=== PATIENT | male | born 1995 | race Caucasian/White ===

== ENCOUNTER 2018-05-21 16:43 | Inpatient (IN) | payer BC, OTHER ==
[~2018-05-21] VITALS: Ht 182.9 cm; Wt 66.2 kg
[2018-05-22] MEDS ORDERED: KLONOPIN (04:35)
--- NOTE | 2018-05-22 10:40 | NUR ---
pre-assessment: pt is assessed in intake office by RN, Patient was medically discharged from ER ([facility]) patient verbalized he was given narcan and now I'm feeling pretty bad. pt uses cane to ambulate D/T injury to the right Knee. pt is nodding off but when assessing patient in regards to usage and withdrawal symptoms patient appears anxious and knows what verbiage to use. explained protocols and procedures and patient verbalized understanding
[2018-05-22 11:22] VITALS: BP 121/57
[2018-05-22] MEDS ORDERED: IBUPROFEN 600 MG TABLET PO PRN (13:00)
[2018-05-22] MEDS ORDERED: LORAZEPAM 1 MG TABLET PO PRN ×3 (13:00)
[2018-05-22] MEDS ORDERED: MAG HYDROX/AL HYDROX/SIMETH 30 ML LIQUID UDC PO PRN (13:00)
[2018-05-22] MEDS ORDERED: LORAZEPAM 2 MG/1 ML VIAL IM PRN (13:00)
[2018-05-22] MEDS ORDERED: ONDANSETRON 4 MG/2 ML VIAL IM PRN (13:00)
[2018-05-22] MEDS ORDERED: DICYCLOMINE HCL 20 MG TABLET PO PRN (13:00)
[2018-05-22] MEDS ORDERED: ACETAMINOPHEN 325 MG TABLET PO PRN (13:00)
[2018-05-22] MEDS ORDERED: BUPRENORPHINE HCL 2 MG TAB.SUBL SL PRN (13:00)
[2018-05-22] MEDS ORDERED: 6 DAY PHENOBARBITAL TAPER -SERENITY PROTOCOL PO PRN (13:00)
[2018-05-22] MEDS ORDERED: MAGNESIUM HYDROXIDE 30 ML LIQUID UDC PO PRN (13:00)
[2018-05-22] MEDS ORDERED: LOPERAMIDE HCL 2 MG CAPSULE PO PRN ×2 (13:00)
--- NOTE | 2018-05-22 13:00 | NUR ---
ADMISSION NOTE Pt is a 23 yr old male, AA&O to person, place and situation. Pt is forgetful to time and date. Pt was to be admitted to [facility] on 05/21/18 during the night but was send to the ER by [facility] staff due to drug overdose. While in ER, Pt received Narcan IV and 1000ML of IVF and was discharged at 0832 to [facility] for heroin, Subutex and Klonopin use. Pt arrived on the unit at 1140 and is observed with weak gait and ambulates with DME. Pt states 1 month ago he injured his right knee while playing soccer and had a laceration on his knee. Pts laceration later became affective with MRSA and was treated with antibiotics; last dose was 1 week ago. Due to the injury, pt has been ambulating with DME. Pt is c/o right knee pain 6/10 and is observed of facial grimacing. Pt is observed anxious, agitated, fidgety, flushed and clammy skin, and restlessness. Pt states, I fucken mad they didnt take my girlfriend, we drove from [place] to here to get help. Pt was redirected and was able to continue with assessment. Body check was complete with skin intact, warm and moist to touch. Lung sounds are clear bilaterally. Pt states of allergies to Naloxen, mushroom and onion. Pt states he follows a regular diet and is full code. Pt states of PMH of Anxiety, Depression, Bipolar Disorder, Schizo affective disorder, fx collar bone and MRSA of wound. Pt states he has Hx of Sz x1 in 2011 from Benzo withdrawal. Pt states of taking home medication of Gabapentin 600mg TID but was not brought to the unit. Pt denies any PCP and Psychiatrist. Pt denies any withdrawal induced delirium, or cardiac complication, 5150 or SI/HI. Pt states of having 5 overdoses in the past. Pt states typical withdrawal symptoms are anxiety, agitation, diarrhea, n/v, yawning, headache, muscle aches and teary eyes. Substance use are as follows: 1. Heroin Pt states he has been using heroin since the age of [age] years old. Pt states he was using 2-3g IV daily and has been using at this rate for the past 3-4 weeks. Last use was on 05/21/18 at 2230, pt states of using 0.5g IV. Pt states, It must have been traced with a lot Fentanyl because I overdosed with afterwards. 2. Subutex Pt states he was place on a Subutex maintenance 3 years ago while living in [place]. Pt states he was prescribed 8mg TID and was taking it as prescribed. After moving back to [place], pt was not able get a prescription on Subutex and was experiencing withdrawal symptoms. Pt states he was not able to tolerate the withdrawal symptoms and relapsed. Last use on Subutex was 4 days ago, pt states of using 8mg SL. 3. Klonopin Pt states of he was prescribed Klonopin 2mg PO BID daily for anxiety 3 years ago. Last use was on 05/21/18, pt consumed 8mg at 2345. 4. Crack Cocaine Pt states he began using Crack Cocaine at the age of [age] years old and was smoking 1.5g for 3 years, then stopped for 6 years. Pt states on 05/21/18, he was with a group of friends who were smoking crack cocaine and was tempted to smoke. Pt states he smoke 0.25g at 1200 Pt states he began using substances to just fit in, to look cool until it got to the point where he enjoyed the sensation of getting high. Pt states he has been trying to get sober several times and has been in and out of 30-50 treatments. Last treatment was 2 years ago and went to [facility] for 1 year but was on Subutex maintenance while in rehab. Pt states longest sobriety without any substances was 14-15 months in 2013. Pt states living in [place] made it difficult for him to maintain his sobriety because there were drugs everywhere you go, on the corner of the streets, in rehab, IOP, thats why I wasnt able to stay clean so I moved back to [place]. Once pt was in [place], Pt was not able to get prescriptions for Subutex maintenance, which cause him to relapse and began using heroin again for 3-4 weeks until he came to [facility]. Pt states, I left with my girlfriend and came to [place] for a fresh start and for both of us to have a better life Pt was seen and examined by Dr. Quiles. Pt was place on 5 day Phenobarbital taper and 4 day Subutex taper as ordered. Pt was educated on discharged summary and was able to verbalize understanding. Pt is on fall and seizure precautions. Call light is within reach. Will continue to monitor.
[2018-05-22 13:44] LABS: BASOPHILS % (AUTO) 0.6 % (0.0-2.0); EOSINOPHILS # (AUTO) 0.1 K/uL (0.0-0.7); EOSINOPHILS % (AUTO) 2.3 % (0.0-7.0); HEMATOCRIT 36.6 % (36.7-47.1); HEMOGLOBIN 12.9 g/dL (12.5-16.3); LYMPHOCYTES # (AUTO) 1.7 K/uL (20.0-40.0); LYMPHOCYTES % (AUTO) 32.3 % (20.5-51.5); MEAN CORPUSCULAR HEMOGLOBIN 30.5 uug (23.8-33.4); MEAN CORPUSCULAR HGB CONC 35 g/dL (32.5-36.3); MONOCYTES # (AUTO) 0.5 K/uL (2.0-10.0); MONOCYTES % (AUTO) 10.1 % (0.0-11.0); NEUTROPHILS # (AUTO) 2.8 K/uL (1.8-8.9); NEUTROPHILS % (AUTO) 54.7 % (38.5-71.5); PLATELET COUNT (AUTO) 248 K/uL (152-348); RED BLOOD CELL COUNT(AUTO) 4.25 MIL/uL (4.06-5.63); WHITE BLOOD COUNT (AUTO) 5.2 K/uL (3.6-10.2)
[2018-05-22 13:54] LABS: ETHANOL < 3 MG/DL (0-0)
[2018-05-22 13:58] LABS: ALANINE AMINOTRANSFERASE 25 U/L (16-63); ALKALINE PHOSPHATASE 72 U/L (50-136); ASPARTATE AMINOTRANSFERASE 20 U/L (15-37); BILIRUBIN,TOTAL 1.2 mg/dL (0.2-1.0); CARBON DIOXIDE 28 mmol/L (21-32); CHLORIDE 103 mmol/L (98-107); GLUCOSE 112 mg/dL (74-106); MAGNESIUM 2.2 mg/dL (1.8-2.4); POTASSIUM 3.4 mmol/L (3.5-5.1); TOTAL PROTEIN, SERUM 7.6 g/dL (6.4-8.2); UREA NITROGEN, BLOOD 10 mg/dL (7-18)
[2018-05-22 14:03] LABS: THYROID STIMULATING HORMONE 0.767 mIU/mL (0.358-3.740)
[2018-05-22] MEDS ORDERED: POTASSIUM CHLORIDE 20 MEQ TAB.PRT.SR PO ONE (14:45)
[2018-05-22] MEDS: PHENOBARBITAL 60 MG TABLET PO SCH ×2 (15:00→21:17)
--- NOTE | 2018-05-22 15:40 | NUR ---
MEDICATION HELD Phenobarbital 60mg PO as scheduled at 1500 was held due to pt was too sedated. Pt is arousable to touch and name but was unable to be woken up. RR is 16. Pt was given KDur 20MEQ PO for replacement. Safety precautions observed. Will continue to monitor.
[2018-05-22 16:00] VITALS: BP 107/61
[2018-05-22 17:19] LABS: *AMPHETAMINE, URINE NEGATIVE (NEGATIVE); *BARBITURATE, URINE NEGATIVE (NEGATIVE); *CANNABINOID, URINE NEGATIVE (NEGATIVE); *COCCAINE, URINE POSITIVE (NEGATIVE); *OPIATE, URINE POSITIVE (NEGATIVE); *PHENCYCLIDINE SCREEN,URINE NEGATIVE (NEGATIVE)
--- NOTE | 2018-05-22 18:53 | NUR ---
PRN GIVEN Pt was c/o x2 episodes of diarrhea, muscle aches, sweats, restlessness, yawning and anxiety. Pt states, "I am having heroin withdrawal". COWS assessment was 12. Imodium 4mg PO PRN and Subutex 4mg SL PRN was given as ordered. Will endorse to second shift supervisor nurse to continue with assessment.
--- NOTE | 2018-05-22 19:05 | NUR ---
END OF SHIFT Pt is a 23 yr old male, newly admitted to [facility] for Opiate/Benzo withdrawal and was place on 5 day Phenobarbital taper starting today and 4 day Subutex taper starting on 05/23/18. Pt has been noted sedated and was in bed sleeping throughout the day. Phenobarbital 60mg PO scheduled at 1500 was held due to pt was too sedated. While awake, Pt was c/o anxiety, x2 episodes of diarrhea, sweats, chills, muscle aches, yawning and agitation. COWS score was 12. Pt was given Imodium 4mg PO PRN and Subutex 4mg SL PRN at 1853. Endorsed to shift leader nurse to f/u with re-assessment. Pt is on fall and seizure precautions. Last COWS score was 12 at 1853 and CIWA score was 9 upon admission.
--- NOTE | 2018-05-22 19:30 | NUR ---
Start of shift Patient is a 23 year old male admitted on 05/22/2018 here at [facility] for Opiates withdrawal. Patient is on a 5 day Phenobarbital taper and a 4 day Subutex taper. Patients last COWS was 12. Per endorsement patient had potassium replaced today 05/22/2018, MRSA swab was collected and needs to be send to lab, will send swab to lab. Patient had PRN Subutex and Imodium for anxiety and diarrhea. Will monitor effectiveness of medication. Patient is on Fall and Seizure precautions. Upon rounds patient was noted in room watching tv, he seemed depressed, worried, and anxious. Patient verbalized understanding of plan of care. Patient verbalized decrease anxiety. Respirations are even and unlabored. Safety measures in place, bed locked in low position, side rails up x2, and call light within reach. Will continue to monitor.
--- NOTE | 2018-05-22 19:52 | NUR ---
PRN Imodium and Subutex Reassessment Patient reports he has not experience another episode of diarrhea, and his anxiety has decreased. Medication was noted to effective and will continue to monitor. Respirations are even and unlabored. Safety measures in place.
[2018-05-22 20:00] VITALS: BP 110/63
--- NOTE | 2018-05-22 20:00 | NUR ---
COWS Assessment Patient is presenting with s/s of withdrawal as follow: anxiety, agitation, dilated pupils, and goose bumps. Patients COWS is 8. Respirations are even and unlabored. Safety measures in place. Will continue to monitor.
[2018-05-22] MEDS: diphenhydrAMINE 50 MG CAPSULE PO PRN (22:42)
--- NOTE | 2018-05-22 22:42 | NUR ---
PRN Benadryl Patient reports difficulty falling asleep. Administered PRN Benadryl and was tolerated well. Respirations are even and unlabored. Safety measures in place. Will continue to monitor.
--- NOTE | 2018-05-22 23:42 | NUR ---
PRN Benadryl Reassessment Patient noted in bed with eyes closed resting with tv and lights off. Medication noted to be effective. Respirations are even and unlabored. Safety measures in place. Will continue to monitor.
[2018-05-23] VITALS: BP 106/69
--- NOTE | 2018-05-23 | NUR ---
COWS Deferred Patient noted in bed lying with eyes closed, breathing even and unlabored. Per protocol COWS is to be assess while patient is awake. Safety measures in place. Will continue to monitor.
[2018-05-23 04:00] VITALS: BP 110/72
[2018-05-23 04:09] LABS: HEPATITIS B SURFACE AG Negative (Negative)
--- NOTE | 2018-05-23 07:10 | NUR ---
Start of Shift Note Pt. is a 23 y/o male admitted for the medically managed withdrawal from Opiates, and Benzodiazepines. Pt. also smoked crack cocaine on his date of admission. Pt. was placed on a 5 day Phenobarbital, and 4 day Subutex taper. Endorse from previous shift pt. presented with anxiety, agitation, depression, a flat affect, and tremors. Received pt. in room. Pt. sitting on the edge of the getting himself ready to step out for a cigarette break. Pt. presents as disheveled, with an avoidant gaze, depressed mood, flat affect, and tremors. Pt. report feeling anxious, restless and congested. Educated pt. on treatment plan and medication regiment for the day. Safety measures in place. Will continue to monitor pt.s behavior for safety.
--- NOTE | 2018-05-23 07:32 | NUR ---
End of shift Patient is a 23 year old male admitted on 05/22/2018 here at [facility] for Opiates withdrawal. Patient is on a 5 day Phenobarbital taper and a 4 day Subutex taper. Patients last COWS was 8. Patient had PRN Benadryl during this shift. Patient is on Fall and Seizure precautions. Patient slept for 9 hours and had a total intake of 1,200 ml. Patient voided x2 and had no bowel movements. Respirations are even and unlabored. Safety measures in place, bed locked in low position, side rails up x2, and call light within reach. Will endorse to day shift.
[2018-05-23 07:35] LABS: BILIRUBIN,TOTAL 1.2 mg/dL (0.2-1.0); CREATININE 0.9 mg/dL (0.6-1.3); POTASSIUM 3.7 mmol/L (3.5-5.1); TOTAL PROTEIN, SERUM 7.2 g/dL (6.4-8.2)
[2018-05-23 08:00] VITALS: BP 105/49
--- NOTE | 2018-05-23 08:00 | NUR ---
COWS/CIWA Assessment COWS of 11 and CIWA of 12. Pt. in room presenting with tremors, diaphoresis, and tremors. Pt. reports chills, body aches, headache, abdominal cramps, and increased anxiety. Will give medications as ordered. Will continue to monitor pt.'s behavior for safety.
[2018-05-23] MEDS: PHENOBARBITAL 60 MG TABLET PO SCH ×4 (08:22→21:44)
[2018-05-23] MEDS: METHOCARBAMOL 750 MG TABLET PO PRN ×2 (08:22→22:08)
[2018-05-23] MEDS: BUPRENORPHINE HCL 2 MG TAB.SUBL SL SCH ×3 (08:22→21:44)
[2018-05-23] MEDS: HYDROXYZINE PAMOATE 25 MG CAPSULE PO PRN (08:22)
[2018-05-23] MEDS: CLONIDINE HCL 0.1 MG TABLET PO PRN (08:22)
[2018-05-23] MEDS: MULTIVITAMINS,THERAPEUTIC TABLET PO SCH (08:22)
--- NOTE | 2018-05-23 08:23 | NUR ---
PRN Medication Pt. in room complaining of increased anxiety and body aches. PRN Motrin, Clonidine, Vistaril, and Robaxin given at this time manage withdrawal symptoms. Will continue to monitor pt.'s behavior for safety and medication effectiveness.
[2018-05-23] MEDS ORDERED: TUBERCULIN,PURIF.PROT.DERIV. 5 TU/0.1 ML TEST ID ONE (09:00)
[2018-05-23] MEDS ORDERED: 4 DAY TAPER BUPRENORPHINE -SERENITY PROTOCOL SL PRN (09:00)
--- NOTE | 2018-05-23 09:30 | NUR ---
PRN Re-Assessment Pt. reports a decreased in anxiety and body aches. Medication effective. Will continue to monitor pt.'s behavior for safety.
[2018-05-23 12:00] VITALS: BP 105/55
--- NOTE | 2018-05-23 12:00 | NUR ---
COWS/CIWA Assessment COWS of 11 and CIWA of 12. Pt. in room presenting with tremors, diaphoresis, and tremors. Pt. reports chills, body aches, headache, abdominal cramps, and increased anxiety. Pt. compliant with medication regiment and treatment plan. Will continue to monitor pt.'s behavior for safety.
--- NOTE | 2018-05-23 13:19 | NUR ---
Therapist prompted client to attend all group therapy sessions.
[2018-05-23] MEDS: KETOROLAC TROMETHAMINE 30 MG INJ IM PRN (15:58)
--- NOTE | 2018-05-23 15:58 | NUR ---
PRN Medication Pt. in room complaining of severe body aches. PRN Toradol given at this time manage withdrawal symptoms. Will continue to monitor pt.'s behavior for safety and medication effectiveness.
[2018-05-23 16:00] VITALS: BP 93/50
--- NOTE | 2018-05-23 16:00 | NUR ---
COWS/CIWA Assessment COWS of 10 and CIWA of 10. Pt. in room presenting with tremors, diaphoresis, and tremors. Pt. reports chills, body aches, abdominal cramps, and increased anxiety. Pt. compliant with treatment plan and medication regiment. Will continue to monitor pt.'s behavior for safety.
--- NOTE | 2018-05-23 16:30 | NUR ---
PRN Re-Assessment Pt. reports a significant decrease in body aches. Medication effective. Will continue to monitor pt.'s behavior for safety.
--- NOTE | 2018-05-23 19:19 | NUR ---
End of Shift Pt. is a 23 y/o male admitted for the medically managed withdrawal from Opiates, and Benzodiazepines. Pt. also smoked crack cocaine on his date of admission. Pt. was placed on a 5 day Phenobarbital, and 4 day Subutex taper. Throughout shift pt. presented with anxiety, agitation, depression, body aches, a flat affect, and tremors. Pt. complaint with medication regiment and treatment plan. Safety measures in place. Will endorse pt.s care to oncoming shift.
--- NOTE | 2018-05-23 19:30 | NUR ---
Start of shift Patient is a 23 year old male admitted on 05/22/2018 for medically supervised Opiate and Benzo withdrawal. Patient is on a 5 day Phenobarbital taper and 4 day Subutex taper. Patients last CIWA was 10 and COWS 10. Patient had PRN Clonidine, Vistaril, Toradol, and Robaxin. Patient is on Fall and Seizure precautions. Upon rounds patient was noted in room watching tv, 2100 medications were reviewed and patient verbalized understanding. Patient is noted to have a flat affect and depressed. Respirations are even and unlabored. Safety measures in place, bed locked in low position, side rails up x2, and call light within reach. Will continue to monitor.
[2018-05-23 20:00] VITALS: BP 96/63
--- NOTE | 2018-05-23 20:00 | NUR ---
CIWA and COWS Assessment Patient is presenting with s/s and of withdrawal as follow: cold sweats, hold and cold, nausea, diarrhea, and low back pain. Patients COWS is 9 and CIWA is 10. Respirations are even and unlabored. Safety measures in place, and will continue to monitor.
[2018-05-23] MEDS: diphenhydrAMINE 50 MG CAPSULE PO PRN (21:44)
--- NOTE | 2018-05-23 21:45 | NUR ---
PRN Benadryl and Robaxin Patient is reporting difficulty falling asleep and body aches. Administered PRN Benadryl and Robaxin and patient tolerated well. Respirations are even and unlabored. Safety measures are in place. Will continue to monitor.
--- NOTE | 2018-05-23 22:45 | NUR ---
PRN Benadryl and Robaxin Reassessment Patient was noted in bed lying with eyes closed, breathing even and unlabored. Medication noted to be effective, will continue to monitor. Safety measures in place.
[2018-05-24] VITALS: BP 103/63
--- NOTE | 2018-05-24 | NUR ---
CIWA and COWS Assessment Patient is presenting with s/s and of withdrawal as follow: cold sweats, anxiety, agitation, hold and cold, and low back pain. Patients COWS is 8 and CIWA is 10. Respirations are even and unlabored. Safety measures in place, and will continue to monitor.
[2018-05-24 04:00] VITALS: BP 101/61
--- NOTE | 2018-05-24 04:00 | NUR ---
COWS and CIWA Deferred Patient noted in bed lying with eyes closed, breathing even and unlabored. Per protocol COWS and CIWA is to be assess while patient is awake. Safety measures in place. Will continue to monitor.
--- NOTE | 2018-05-24 07:22 | NUR ---
End of shift Patient is a 23 year old male admitted on 05/22/2018 for medically supervised Opiate and Benzo withdrawal. Patient is on a 5 day Phenobarbital taper and 4 day Subutex taper. Patients last CIWA was 8 and COWS 10. Patient had PRN Benadryl and Robaxin. Patient is on Fall and Seizure precautions. Patient slept for 6 hours and had a total intake of 1,153ml. Patient voided x3 and had no bowel movement. Respirations are even and unlabored. Safety measures in place, bed locked in low position, side rails up x2, and call light within reach. Will endorse to day shift.
--- NOTE | 2018-05-24 07:50 | NUR ---
Start Of Shift Patient is a 23yr old male who was admitted to [facility] on 05/22/18 for a medically supervised withdrawal from Benzodiazepines ( Klonopin) and Opiates ( Heroin IV and Subutex SL) and also states he abused Crack Cocaine, he has been placed on a 5 day Phenobarbital taper and 4 day Subutex taper and this is day 2. PRN medications given on PM shift : Benadryl for sleep and Robaxin for body aches, he slept for 6 hours and last COWS was 8 and CIWA 10. Currently he is asleep in bed , breathing even and unlabored, call light within reach. Continue to follow MD plan of care and offer support and encouragement.
[2018-05-24 08:00] VITALS: BP 105/55
[2018-05-24] MEDS: MULTIVITAMINS,THERAPEUTIC TABLET PO SCH (08:56)
[2018-05-24] MEDS: PHENOBARBITAL 60 MG TABLET PO SCH ×3 (08:56→20:27)
[2018-05-24] MEDS ORDERED: BUPRENORPHINE HCL 2 MG TAB.SUBL SL SCH (09:00)
--- NOTE | 2018-05-24 09:00 | NUR ---
COWS 11/ CIWA 10 Withdrawal symptoms present as extreme lethargy, diaphoresis, warm clammy skin, body aches, restlessness and decreased appetite, he has a flat sad affect. Scheduled Subutex and Pheno given, No PRN medications requested
--- NOTE | 2018-05-24 09:59 | NUR ---
Therapist prompted client to attend group therapy.
[2018-05-24 12:00] VITALS: BP 109/46
--- NOTE | 2018-05-24 12:17 | NUR ---
COWS 10/ CIWA 9 Withdrawal symptoms present as extreme lethargy, diaphoresis, warm clammy skin, body aches,goose bumps, restlessness and decreased appetite, he has a flat sad affect.
[2018-05-24] MEDS: KETOROLAC TROMETHAMINE 30 MG INJ IM PRN (14:19)
[2018-05-24] MEDS: BUPRENORPHINE HCL 2 MG TAB.SUBL SL SCH ×2 (14:19→20:26)
[2018-05-24] MEDS: HYDROXYZINE PAMOATE 25 MG CAPSULE PO PRN (14:19)
--- NOTE | 2018-05-24 14:20 | NUR ---
PRN Toradol 30mg Im given for leg pain 8/10 Vistaril 50mg PO given for anxiety
[2018-05-24] MEDS: METHOCARBAMOL 750 MG TABLET PO PRN (14:54)
[2018-05-24] MEDS: ropiniROLE 1 MG TABLET PO PRN (14:54)
--- NOTE | 2018-05-24 14:58 | NUR ---
PRN Requip 1mg PO PRN given for restless legs Robaxin 750mg PO given for leg aches 01/20
--- NOTE | 2018-05-24 16:00 | NUR ---
PRN Reassess Patient states medications effective, muscle aches and restless legs have decreased Robaxin and Requip effective
--- NOTE | 2018-05-24 16:00 | NUR ---
COWS 10/ CIWA 12 Withdrawal symptoms present as extreme lethargy, diaphoresis, warm clammy skin, body aches,goose bumps, restlessness, decreased appetite and restless legs Requip 1mg PO and Robaxin 750mg PO given at 1500 with positive effects Toradol was given at 1420 which was effective
[2018-05-24 16:50] VITALS: BP 114/71
--- NOTE | 2018-05-24 18:45 | NUR ---
End Of Shift Patient is a 23 yr old male who was admitted to [facility] on 05/22/18 for a medically supervised withdrawal from Benzodiazepines (Klonopin) and Opiates ( Heroin IV and Subutex) and also abused crack cocaine, he has been placed on a 5 day Pheno and 4 day Subutex taper and this was day 2/. PRN medications given this shift : Vistaril, Toradol, Requip and Robaxin, his withdrawal symptoms present as generalized body aches, restless legs, restlessness, goose bumps, decreased appetite, lethargy and diaphoresis, he has been isolative to his room all day and has not joined group therapy. He ambulates with the aid of a cane due to right knee injury and unsteady gait. His last COWS was 10 and CIWA 12 @ 1600. He had a fluid intake of 1000 ML, 3 Voids and 1BM. Continue to follow MD plan of care and offer support and encouragement as needed. Endorsed to shift production supervisor.
--- NOTE | 2018-05-24 19:46 | NUR ---
START OF SHIFT NOTE Rcvd report from outgoing nurse. Pt is a 23 y/o male A/O to person, place, time, and purpose. Pt was admitted for medically supervised withdrawal from Benzodiazepines and Opiates. Pt is on day 3 of a 5 day Phenobarbital and day 2 of a 4 day Subutex taper. Pt has been presenting w/ anxiety, agitation, irritability, depressed and withdrawn mood, a blunt affect, sweats, chills, and body aches. PRN Vistaril, Toradol, Requip, and Robaxin were given and noted effective by outgoing nurse. Last CIWA 12 and COWS 10 @ 1600. Call light is within reach. Pt will continue to be monitored and needs met.
[2018-05-24 20:03] VITALS: BP 104/53
--- NOTE | 2018-05-24 20:05 | NUR ---
CIWA AND COWS ASSESSMENT CIWA 12 and COWS 10. Pt has been presenting w/ anxiety, agitation, irritability, depressed and withdrawn mood, a blunt affect, sweats, chills, and body aches. V/S: T:97.9, P:71, RR:16, SPO2:98, BP:104/53.
--- NOTE | 2018-05-25 00:30 | NUR ---
CIWA AND COWS ASSESSMENT CIWA 13 and COWS 10. Pt has been presenting w/ anxiety, agitation, irritability, depressed and withdrawn mood, a blunt affect, sweats, chills, and body aches. Pt refused V/S.
[2018-05-25] MEDS: CLONIDINE HCL 0.1 MG TABLET PO PRN (00:54)
[2018-05-25] MEDS: diphenhydrAMINE 50 MG CAPSULE PO PRN ×2 (00:54→21:21)
--- NOTE | 2018-05-25 00:54 | NUR ---
PRN BENADRYL AND CLONIDINE ADMINISTRATION Benadryl 50mg was given for sleep and Clonidine 0.1mg was given for anxiety and agitation. Will reassess pt in 1hr.
--- NOTE | 2018-05-25 01:54 | NUR ---
PRN BENADRYL AND CLONIDINE REASSESSMENT Pt is in bed w/ his eyes closed. Pt's respirations are unlabored and even.
--- NOTE | 2018-05-25 04:15 | NUR ---
CIWA AND COWS DEFERRED. V/S REFUSED Pt is in bed w/ his eyes closed. Pt's respirations are unlabored and even.
--- NOTE | 2018-05-25 07:22 | NUR ---
END OF SHIFT NOTE Endorsed pt to oncoming nurse. Pt is a 23 y/o male A/O to person, place, time, and purpose. Pt was admitted for medically supervised withdrawal from Benzodiazepines and Opiates. Pt completed day 3 of a 5 day Phenobarbital and day 2 of a 4 day Subutex taper. Pt continues presenting w/ anxiety, agitation, irritability, depressed and withdrawn mood, a blunt affect, sweats, chills, and body aches. Pt denies any S/I or H/I. PRN Benadryl 50mg for sleep and Clonidine 0.1mg for anxiety were given and noted effective. Pts fluid intake was 500ml and he slept for 9hrs. Last CIWA 13 and COWS 10 @ 0000. Call light is within reach.
--- NOTE | 2018-05-25 08:06 | NUR ---
BEGINNING OF SHIFT Patient continues with ongoing 5 day phenobarbital taper and 4 day Subutex taper as ordered, continues under close observation. Patient currently in room with eyes closed, respirations even and unlabored. Responsive to verbal stimuli, will educate regarding plan of care for the day. Per night cleaner endorsement report patient slept for 9 hours, intermittently. Received PRN: Clonidine and Benadryl. Last CIWA score of: 13, last COW: 10. safety measures are in place. will continue to monitor.
--- NOTE | 2018-05-25 08:10 | NUR ---
COW/CIWA ASSESSMENT Patient was noted exhibiting the following s/sx of withdrawal: increase emotional amplitude, emotional volatility, flushed face, clammy skin, difficulty sitting still, fidgety, enlarged pupils, mild arthralgias, and mild myalgias, moist eyes, tremors that can be felt, yawning, irritability, anxiety and agitation. Patient with current COW score of: 10.
[2018-05-25 08:20] VITALS: BP 98/62
[2018-05-25] MEDS: MULTIVITAMINS,THERAPEUTIC TABLET PO SCH (08:27)
[2018-05-25] MEDS: PHENOBARBITAL 60 MG TABLET PO SCH ×2 (08:27→21:21)
[2018-05-25] MEDS: BUPRENORPHINE HCL 2 MG TAB.SUBL SL SCH ×3 (08:28→21:21)
--- NOTE | 2018-05-25 12:45 | NUR ---
COW/CIWA ASSESSMENT Continues to exhibit the following s/sx of withdrawal: increase emotional amplitude, emotional volatility, flushed face, clammy skin, difficulty sitting still, fidgety, enlarged pupils, mild arthralgias, and mild myalgias, moist eyes, tremors that can be felt, yawning, irritability, anxiety and agitation. Patient with current COW score of: 10, and CIWA score of: 10. Will continue to monitor.
--- NOTE | 2018-05-25 12:45 | NUR ---
MD COMMUNICATION Patient reported to nurse, feeling a foreign substance to OD. Area was assessed, no foreign substance visible, however patient c/o of irritation and and discomfort. Redness noted on sclera, notified MD. Educated patient on not touching area, notified MD, per MD ok to flush with NS solution and MD will input new orders, patient education provided. Will continue to monitor.
[2018-05-25] MEDS ORDERED: TOBRAMYCIN/DEXAMETH OPHT OINT 3.5 GM TUBE RIGHTEYE SCH (13:00)
[2018-05-25] MEDS ORDERED: CIPROFLOXACIN 0.3% OPHT OINT 3.5 GM TUBE RIGHTEYE SCH (13:00)
[2018-05-25 13:33] VITALS: BP 105/69
[2018-05-25] MEDS: TOBRAMYCIN/DEXAMETH OPHT DROP 2.5 ML BOTTLE RIGHTEYE SCH ×2 (16:31→21:41)
[2018-05-25 16:50] VITALS: BP 105/62
--- NOTE | 2018-05-25 16:56 | NUR ---
COW/CIWA ASSESSMENT Still presenting with: emotional volatility, flushed face, clammy skin, difficulty sitting still, fidgety, increase emotional amplitude, enlarged pupils, mild arthralgias, and mild myalgias, moist eyes, tremors that can be felt, yawning, irritability, anxiety and agitation. Patient with current COW score of: 10, and CIWA score of: 10. Will continue to monitor. Safety measures in place.
--- NOTE | 2018-05-25 16:57 | NUR ---
END OF SHIFT/ENDORSED CARE Patient alert and oriented x4, continues under close observation with ongoing 5 day Phenobarbital taper and 4 day Subutex taper as ordered. Patient noted disheveled,unshaven,odorous and with dirty fingernails, has clothes thrown on floor, patient was encouraged maintenance of personal space and self grooming, offered linen change and declined. Noted with avoidant eye contact, irritable/angry facial expression. Noted with guarded/anxious mood. Easily agitated, provided with calming reassurance as needed. Encouraged patient to attend group therapies/sessions to learn new coping skills to prevent relapse. Denies SI/HI. Patient was noted exhibiting the following s/sx of withdrawal: increase emotional amplitude, emotional volatility, flushed face, clammy skin, difficulty sitting still, fidgety, enlarged pupils, mild arthralgias, and mild myalgias, moist eyes, tremors that can be felt, yawning, irritability, anxiety and agitation. Patient with last COW score of: 10, and last CIWA score of: 10. Patient started on ATB eye drops to OD, due to c/o irritation, discomfort and redness, currently patient verbalized OD feeling better. Encouraged patient to increase PO fluid intake as tolerated. Also encouraged utilization of non pharmacological interventions. Safety measure are in place. Call light with in each, patient was endorsed to staff nurse, all pertinent information was discussed.
--- NOTE | 2018-05-25 17:00 | NUR ---
Assumed Care: Assumed care for the patient at this time. All pertinent information discussed. No PRNs given. ATB eye drops started. Last .
--- NOTE | 2018-05-25 19:02 | NUR ---
End of Shift Notes: Endorsed patient to night nurse. All pertinent information discussed. Last COWS 10/CIWA 10. No PRNs given. Started on ATB drops for eye irritation. All needs met and attended.
--- NOTE | 2018-05-25 19:30 | NUR ---
Start of shift Patient is a 23 year old male admitted on 05/22/2018 for medically supervised Opiate and Benzo withdrawal. Patient is on a 5 day Phenobarbital taper and 4 day Subutex taper. Patients last CIWA was 10 and COWS 10. Patient had no PRN medications during day shift. Patient is on Fall and Seizure precautions. Upon rounds patient was noted in room watching tv, 2100 medications were reviewed and patient verbalized understanding. Patient seems depressed, isolated, and anxious. Respirations are even and unlabored. Safety measures in place, bed locked in low position, side rails up x2, and call light within reach. Will continue to monitor.
[2018-05-25 20:00] VITALS: BP 123/66
--- NOTE | 2018-05-25 20:00 | NUR ---
CIWA and COWS Assessment Patient is presenting with s/s and of withdrawal as follow: body aches, cold sweats, chills, nausea, and tremors. Patients COWS is 7 and CIWA is 11. Respirations are even and unlabored. Safety measures in place, and will continue to monitor.
--- NOTE | 2018-05-25 21:21 | NUR ---
PRN Benadryl Patient was presenting with difficulty falling asleep. Administered PRN Benadryl and patient tolerated well and will continue to monitor. Respirations are even and unlabored. Safety measures in place.
--- NOTE | 2018-05-25 22:21 | NUR ---
PRN Benadryl Reassessment Patient is noted lying in bed with eyes closed, breathing even and unlabored. Medication noted to be effective. Safety measures in place and will continue to monitor.
[2018-05-26] VITALS: BP 102/62
[2018-05-26 04:00] VITALS: BP 106/67
--- NOTE | 2018-05-26 07:01 | NUR ---
End of shift Patient is a 23 year old male admitted on 05/22/2018 for medically supervised Opiate and Benzo withdrawal. Patient is on a 5 day Phenobarbital taper and 4 day Subutex taper. Patients last CIWA was 11 and COWS 7. Patient is on Fall and Seizure precautions. Patient had PRN Benadryl for sleep during this shift. Patient slept for 8 hours and had a total intake of 1,755 ml. Patient voided x4 and had no bowel movements during this shift. Respirations are even and unlabored. Safety measures in place, bed locked in low position, side rails up x2, and call light within reach. Will continue to monitor.
--- NOTE | 2018-05-26 07:20 | NUR ---
Start Of Shift Patient is a 23yr old male who was admitted to [facility] on 05/22/18 for a medically supervised withdrawal from Benzodiazepines (Klonopin) and Opiates ( Heroin IV and Subutex SL) and also states he abused Crack Cocaine, he continues on a 5 day Phenobarbital taper and 4 day Subutex taper. PRN medications given on PM shift : Benadryl for sleep, he slept for 8 hours and last COWS was 7 and CIWA 11. Currently he is asleep in bed , breathing even and unlabored, call light within reach. Continue to follow MD plan of care and offer support and encouragement.
[2018-05-26 08:00] VITALS: BP 110/68
[2018-05-26] MEDS: ropiniROLE 1 MG TABLET PO PRN (08:09)
[2018-05-26] MEDS: TOBRAMYCIN/DEXAMETH OPHT DROP 2.5 ML BOTTLE RIGHTEYE SCH ×4 (08:09→21:00)
--- NOTE | 2018-05-26 08:10 | NUR ---
PRN Requip 1G given for reports of restless legs, will reassess
[2018-05-26] MEDS: MULTIVITAMINS,THERAPEUTIC TABLET PO SCH (08:12)
--- NOTE | 2018-05-26 08:25 | NUR ---
COWS 8 CIWA 9 Patient presents with increased anxiety, irritability, decreased appetite, restlessness and agitation Scheduled Pheno and Subutex given
[2018-05-26] MEDS ORDERED: PHENOBARBITAL 60 MG TABLET PO SCH (09:00)
[2018-05-26] MEDS ORDERED: BUPRENORPHINE HCL 2 MG TAB.SUBL SL SCH (09:00)
--- NOTE | 2018-05-26 09:10 | NUR ---
PRN Reassess Patient states medication was slightly effective
[2018-05-26 12:00] VITALS: BP 114/60
--- NOTE | 2018-05-26 12:24 | NUR ---
COWS 8 CIWA 9 Patient presents with increased anxiety, irritability, decreased appetite, restlessness, agitation and restless legs Requip 1G PO PRN was given @ 0810 with positive results
[2018-05-26] MEDS ORDERED: TOBR2.5D RIGHTEYE (13:04)
[2018-05-26 16:00] VITALS: BP 121/71
--- NOTE | 2018-05-26 16:00 | NUR ---
COWS 8 CIWA 11 Patient presents with increased anxiety, irritability, decreased appetite, restlessness, agitation and restless legs
--- NOTE | 2018-05-26 18:58 | NUR ---
End Of Shift Patient is a 23 yr old male who was admitted to [facility] on 05/22/18 for a medically supervised withdrawal from Benzodiazepines (Klonopin) and Opiates ( Heroin IV and Subutex) and also abused crack cocaine, he has completed a 5 day Pheno and 4 day Subutex taper and will be discharged tomorrow morning to " [facility]". NO PRN medications were given this shift , his withdrawal symptoms present as generalized body aches, restless legs, restlessness, decreased appetite, lethargy and diaphoresis, he has been isolative to his room all day and has not joined group therapy. His last COWS was 8 and CIWA 11 @ 1600. He had a fluid intake of 1355 ML, 3 Voids and 1BM. Continue to follow MD plan of care and offer support and encouragement as needed. Endorsed to shift coordinator.
--- NOTE | 2018-05-26 19:41 | NUR ---
START OF SHIFT NOTE Rcvd report from outgoing nurse. Pt is a 23 y/o male A/O to person, place, time, and purpose. Pt was admitted for medically supervised withdrawal from Opiates and Benzodiazepines. Pt completed a 5 day Phenobarbital and 4 day Subutex taper. Pt will be discharged on 05/27. Pt has been presenting w/ body aches, restlessness, anxiety, depressed and withdrawn mood, flat affect. Pt rcvd no PRN medications during the previous shift. Last CIWA 11 and COWS 8 @ 1600. Call light is within reach. Pt will continue to be monitored and needs met.
[2018-05-26 20:01] VITALS: BP 120/56
--- NOTE | 2018-05-26 20:01 | NUR ---
CIWA AND COWS ASSESSMENT CIWA 11 and COWS 9. . Pt will be discharged on 05/27. Pt has been presenting w/ body aches, restlessness, anxiety, depressed and withdrawn mood, flat affect. V/S: T:98.4, P:59, RR:16, SPO2:99, BP:120/56
[2018-05-26] MEDS: CLONIDINE HCL 0.1 MG TABLET PO PRN (21:27)
[2018-05-26] MEDS: diphenhydrAMINE 50 MG CAPSULE PO PRN (21:27)
[2018-05-26] MEDS: HYDROXYZINE PAMOATE 25 MG CAPSULE PO PRN (21:27)
--- NOTE | 2018-05-26 21:27 | NUR ---
PRN BENADRYL, CLONIDINE, VISTARIL, AND ROBAXIN ADMINISTRATION Benadryl 50mg for sleep, Clonidine 0.1mg and Vistaril 50mg for anxiety and restlessness, and Robaxin 750mg for body aches were given. Will reassess pt in 1 hr.
[2018-05-26] MEDS: METHOCARBAMOL 750 MG TABLET PO PRN (21:35)
[2018-05-26] MEDS: ONDANSETRON ODT 4 MG TAB.RAPDIS SL PRN (21:57)
--- NOTE | 2018-05-26 21:57 | NUR ---
PRN ZOFRAN ADMINISTRATION Zofran 4mg SL given for nausea. Pt c/o of nausea w/ no episodes of emesis whenever he yawns. Will reassess pt in 1 hr.
--- NOTE | 2018-05-26 22:27 | NUR ---
PRN BENADRYL, CLONIDINE, VISTARIL, AND ROBAXIN REASSESSMENT Pt is in bed w/ his eyes closed. Pt's respirations are unlabored and even.
--- NOTE | 2018-05-26 22:57 | NUR ---
PRN ZOFRAN REASSESSMENT Pt is in bed w/ his eyes closed. Pt's respirations are unlabored and even.
--- NOTE | 2018-05-27 00:09 | NUR ---
CIWA AND COWS DEFERRED. V/S REFUSED Pt is in bed w/ his eyes closed. Pt's respirations are unlabored and even.
--- NOTE | 2018-05-27 04:07 | NUR ---
CIWA AND COWS DEFERRED. V/S REFUSED Pt is in bed w/ his eyes closed. Pt's respirations are unlabored and even.
--- NOTE | 2018-05-27 07:00 | NUR ---
END OF SHIFT NOTE Endorsed pt to oncoming nurse. Pt is a 23 y/o male A/O to person, place, time, and purpose. Pt was admitted for medically supervised withdrawal from Opiates and Benzodiazepines. Pt completed a 5 day Phenobarbital and 4 day Subutex taper. Pt will be discharged on 05/27. Pt continues presenting w/ body aches, restlessness, anxiety, depressed and withdrawn mood, flat affect. Pt denies any S/I or H/I. PRN Benadryl, Clonidine, Vistaril, Robaxin, and Zofran were given and noted effective. Pts fluid intake was 1110ml and he slept for 9hrs. Last CIWA 11 and COWS 9 @ 1999. Call light is within reach.
--- NOTE | 2018-05-27 07:20 | NUR ---
start of shift Patient is a 23yr old male who was admitted to [facility] on 05/22/18 for a medically supervised withdrawal from Benzodiazepines (Klonopin) and Opiates ( Heroin IV and Subutex SL) and also states he abused Crack Cocaine. He has completed a 5 day Phenobarbital taper and 4 day Subutex taper and is to be discharged this AM to " [facility]". PRN medications given on PM shift : Benadryl, clonidine, Vistaril and Robaxin and Zofran, he slept for 9 hours and last COWS was 9 and CIWA 11. Currently he is asleep in bed , breathing even and unlabored, call light within reach. Continue to follow MD plan of care and offer support and encouragement.
[2018-05-27 08:00] VITALS: BP 133/66
--- NOTE | 2018-05-27 08:25 | NUR ---
COWS 8 CIWA 11 Patient presents with increased anxiety, irritability, decreased appetite, restlessness, agitation, nausea and restless legs
[2018-05-27] MEDS: MULTIVITAMINS,THERAPEUTIC TABLET PO SCH (08:36)
[2018-05-27] MEDS: ropiniROLE 1 MG TABLET PO PRN (08:36)
--- NOTE | 2018-05-27 08:36 | NUR ---
PRN Requip 1G given for C/O restless legs Zofran 4mg SL given for nausea
[2018-05-27] MEDS: ONDANSETRON ODT 4 MG TAB.RAPDIS SL PRN (08:37)
[2018-05-27] MEDS: TOBRAMYCIN/DEXAMETH OPHT DROP 2.5 ML BOTTLE RIGHTEYE SCH (08:59)
--- NOTE | 2018-05-27 09:36 | NUR ---
PRN Reassess Zofran effective, nauseas ceased Requip somewhat effective for restless legs
--- NOTE | 2018-05-27 09:41 | NUR ---
Discharge Note Patient signed and dated all DC paperwork, all personal belongings returned to patient, VS stable, states no SI/HI at this time, patient ambulated off the unit @ 0941 and was picked up in lobby by " [facility]" for transport to " [facility]".
== END 2018-05-27 09:41 | DRG 895 ==
LOC: SRC 05-22 09:54
PROVIDERS: ADMIT Family Medicine Addiction Medicine; ATTEND Family Medicine Addiction Medicine
PROC: HZ2ZZZZ Detoxification Services for Substance Abuse Treatment (ICD-10-PCS; principal; 2018-05-22)
PROC: HZ41ZZZ Group Counseling for Substance Abuse Treatment, Behavioral (ICD-10-PCS; 2018-05-23)
PROC: HZ31ZZZ Individual Counseling for Substance Abuse Treatment, Behavioral (ICD-10-PCS; 2018-05-24)
DX: F11.23 Opioid dependence with withdrawal (principal); F13.20 Sedative, hypnotic or anxiolytic dependence, uncomplicated; F13.230 Sedative, hypnotic or anxiolytic dependence with withdrawal, uncomplicated; F41.1 Generalized anxiety disorder; Z86.14 Personal history of Methicillin resistant Staphylococcus aureus infection; F25.9 Schizoaffective disorder, unspecified; F32.9 Major depressive disorder, single episode, unspecified; E87.6 Hypokalemia; H10.9 Unspecified conjunctivitis; T15.91XA Foreign body on external eye, part unspecified, right eye, initial encounter; X58.XXXA Exposure to other specified factors, initial encounter; Y92.89 Other specified places as the place of occurrence of the external cause; F17.210 Nicotine dependence, cigarettes, uncomplicated; E80.7 Disorder of bilirubin metabolism, unspecified; Z81.1 Family history of alcohol abuse and dependence; T40.1X1D Poisoning by heroin, accidental (unintentional), subsequent encounter; S81.011D Laceration without foreign body, right knee, subsequent encounter; X58.XXXD Exposure to other specified factors, subsequent encounter
CPT/HCPCS: 36415; 70030-TC; 80307; 80346; 80353; 80361; 83735; 84443; 85025; 86580; 86592; 86705; 86803; 87340; 87806; A4663; G0480; J1885; J3590; J8499; Q0162; Q0163

== ENCOUNTER 2018-05-22 04:19 | Emergency (ER) | payer BC, OTHER ==
[~2018-05-22] VITALS: Ht 177.8 cm; Wt 74.8 kg
--- NOTE | 2018-05-22 04:34 | NUR ---
Dr. Gross at bedside for MSE.
[2018-05-22] MEDS ORDERED: KLONOPIN (04:35)
[2018-05-22] MEDS ORDERED: NALOXONE HCL 0.4 MG/ML AMPUL ONE ×2 (04:40→04:47)
[2018-05-22] MEDS ORDERED: ONDANSETRON 4 MG/2 ML VIAL ONE (04:40)
[2018-05-22] MEDS ORDERED: NALOXONE HCL 0.4 MG/ML AMPUL IV ONE ×3 (04:45→05:15)
[2018-05-22] MEDS ORDERED: ONDANSETRON 4 MG/2 ML VIAL IV ONE (04:45)
[2018-05-22] MEDS ORDERED: NALOXONE 2 MG/2 ML SYRINGE ONE (04:50)
--- NOTE | 2018-05-22 04:55 | NUR ---
Xray at bedside.
[2018-05-22] MEDS ORDERED: IV NORMAL SALINE 1000 ML BAG IV ONE (05:15)
[2018-05-22 05:17] LABS: BASOPHILS % (AUTO) 0.8 % (0.0-2.0); EOSINOPHILS # (AUTO) 0.1 K/uL (0.0-0.7); EOSINOPHILS % (AUTO) 2.2 % (0.0-7.0); HEMATOCRIT 36.7 % (36.7-47.1); HEMOGLOBIN 13.2 g/dL (12.5-16.3); LYMPHOCYTES # (AUTO) 2.2 K/uL (20.0-40.0); LYMPHOCYTES % (AUTO) 33.9 % (20.5-51.5); MEAN CORPUSCULAR HEMOGLOBIN 30.4 uug (23.8-33.4); MEAN CORPUSCULAR HGB CONC 36 g/dL (32.5-36.3); MEAN CORPUSCULAR VOLUME 84.7 fL (73.0-96.2); MONOCYTES # (AUTO) 0.8 K/uL (2.0-10.0); MONOCYTES % (AUTO) 12.8 % (0.0-11.0); NEUTROPHILS # (AUTO) 3.2 K/uL (1.8-8.9); NEUTROPHILS % (AUTO) 50.3 % (38.5-71.5); PLATELET COUNT (AUTO) 249 K/uL (152-348); RED BLOOD CELL COUNT(AUTO) 4.33 MIL/uL (4.06-5.63); WHITE BLOOD COUNT (AUTO) 6.4 K/uL (3.6-10.2)
--- NOTE | 2018-05-22 05:19 | NUR ---
Pt out of ER for CT.
--- NOTE | 2018-05-22 05:33 | NUR ---
Pt back to ER from CT.
[2018-05-22 05:42] LABS: ALANINE AMINOTRANSFERASE 25 U/L (16-63); ALKALINE PHOSPHATASE 70 U/L (50-136); ASPARTATE AMINOTRANSFERASE 19 U/L (15-37); BILIRUBIN,DIRECT 0.2 mg/dL (0.0-0.2); BILIRUBIN,TOTAL 1.1 mg/dL (0.2-1.0); CARBON DIOXIDE 28 mmol/L (21-32); CHLORIDE 103 mmol/L (98-107); CREATININE 1.1 mg/dL (0.6-1.3); GLUCOSE 101 mg/dL (74-106); TOTAL PROTEIN, SERUM 7.6 g/dL (6.4-8.2); UREA NITROGEN, BLOOD 10 mg/dL (7-18)
[2018-05-22 06:55] LABS: THYROID STIMULATING HORMONE 2.461 mIU/mL (0.358-3.740)
--- NOTE | 2018-05-22 07:06 | NUR ---
Report given to Martin TORRES dayshift.
[2018-05-22 07:11] LABS: ETHANOL < 3 MG/DL (0-0)
--- NOTE | 2018-05-22 08:00 | NUR ---
recieved pt in room 3. pt sleeping but arousable, girl friend at bedside.
--- NOTE | 2018-05-22 08:09 | NUR ---
called ema at [facility] intake. will come and see the pt. in er.
--- NOTE | 2018-05-22 08:25 | NUR ---
ema from [facility] at bedside.
--- NOTE | 2018-05-22 08:35 | NUR ---
noticed right knee small scabbed wound on the pt. removed the band aid and offered to be cleaned and band aid be replaced, pt refused. aware.
--- NOTE | 2018-05-22 08:37 | NUR ---
Patient discharged to home in stable conditon. Written and verbal after care instructions given. Patient verbalizes understanding of instructions.pt accompanied by ema from [facility] and girl friend.
[2018-05-22 08:40] VITALS: BP 110/61
[2018-05-22 10:44] LABS: *AMPHETAMINE, URINE NEGATIVE (NEGATIVE); *BARBITURATE, URINE NEGATIVE (NEGATIVE); *CANNABINOID, URINE NEGATIVE (NEGATIVE); *COCCAINE, URINE POSITIVE (NEGATIVE); *OPIATE, URINE POSITIVE (NEGATIVE); *PHENCYCLIDINE SCREEN,URINE NEGATIVE (NEGATIVE)
== END 2018-05-22 08:41 | disposition home or self-care (01) ==
LOC: ER 04:20
DX: T40.1X1A Poisoning by heroin, accidental (unintentional), initial encounter (principal); F19.10 Other psychoactive substance abuse, uncomplicated; Z91.018 Allergy to other foods; Z88.8 Allergy status to other drugs, medicaments and biological substances; Y92.89 Other specified places as the place of occurrence of the external cause
CPT/HCPCS: 36415; 70450; 71045; 80048; 80076; 80307; 83880; 84443; 84484; 85025; 93005; 96374; 96375; 99285; A4663; G0480; J2310 ×3; J2405; J7030; 70030-TC

== ENCOUNTER 2019-08-26 15:47 | Emergency (ER) | payer BC, OTHER ==
[~2019-08-26] VITALS: Ht 182.9 cm; Wt 74.8 kg
[~2019-08-26 15:47] MED LIST: TOBR2.5D RIGHTEYE
--- NOTE | 2019-08-26 16:25 | NUR ---
Patient eloped from facility. ER physician notified. No iv's attached, no treatment provided, and no medications administered. Patient stated, "it's okay i do not want to do this anymore, i want to go home." ERMD stated she will speak to him but he could not wait and just bolted out the department front door. No HI/SI/VH/AH
[2019-08-26] MEDS ORDERED: ACETAMINOPHEN ES 500 MG TABLET PO ONE (16:30)
[2019-08-26] MEDS ORDERED: IBUPROFEN 600 MG TABLET PO ONE (16:30)
== END 2019-08-26 16:31 | disposition left against medical advice (07) ==
LOC: ER 15:50
DX: M54.2 Cervicalgia (principal); F41.9 Anxiety disorder, unspecified; F31.9 Bipolar disorder, unspecified; Z88.8 Allergy status to other drugs, medicaments and biological substances; Z91.018 Allergy to other foods; Z79.2 Long term (current) use of antibiotics
CPT/HCPCS: A4663; J7030